=== PATIENT | female | born 1950 | race Caucasian/White ===

== ENCOUNTER → 2019-08-19 15:28 | Outpatient (BNVA) | payer MEDICARE, MEDICAID, SELFPAY | PROVIDERS: Family Provider Family Medicine; Visit Provider Family Medicine | DX: E03.9 Hypothyroidism, unspecified (principal); E83.42 Hypomagnesemia; E11.9 Type 2 diabetes mellitus without complications; I10 Essential (primary) hypertension; E78.5 Hyperlipidemia, unspecified | CPT/HCPCS: 80053; 80061; 83036; 83735; 84439; 84443; 84481 ==

== ENCOUNTER → 2020-03-16 14:38 | Outpatient (BNVA) | payer MEDICARE, MEDICAID, SELFPAY | PROVIDERS: Family Provider Family Medicine; PCP Family Medicine; Visit Provider Family Medicine | DX: E78.5 Hyperlipidemia, unspecified (principal); E03.9 Hypothyroidism, unspecified; K21.9 Gastro-esophageal reflux disease without esophagitis; E83.42 Hypomagnesemia; I10 Essential (primary) hypertension; E11.9 Type 2 diabetes mellitus without complications; F31.5 Bipolar disorder, current episode depressed, severe, with psychotic features | CPT/HCPCS: 80048; 83036; 83735; 84439; 84443; 84481 ==

== ENCOUNTER → 2020-08-01 14:40 | Outpatient (BNVA) | payer MEDICARE, MEDICAID, SELFPAY | PROVIDERS: Family Provider Family Medicine; PCP Family Medicine; Visit Provider Family Medicine | DX: E03.9 Hypothyroidism, unspecified (principal); E78.5 Hyperlipidemia, unspecified; E11.9 Type 2 diabetes mellitus without complications; K21.9 Gastro-esophageal reflux disease without esophagitis; H61.22 Impacted cerumen, left ear; F31.5 Bipolar disorder, current episode depressed, severe, with psychotic features | CPT/HCPCS: 80053; 80061; 83036; 84439; 84443; 84481 ==

== ENCOUNTER → 2021-02-14 08:48 | Outpatient (BNVA) | payer MEDICARE, MEDICAID, SELFPAY | PROVIDERS: Family Provider Family Medicine; PCP Family Medicine; Visit Provider Family Medicine | DX: E78.5 Hyperlipidemia, unspecified (principal); E03.9 Hypothyroidism, unspecified; E11.9 Type 2 diabetes mellitus without complications | CPT/HCPCS: 80053; 80061; 83036; 84439; 84443; 84481; 85025 ==

== ENCOUNTER → 2021-06-07 15:24 | Outpatient (BNVA) | payer MEDICARE, MEDICAID, SELFPAY | PROVIDERS: Family Provider Family Medicine; PCP Family Medicine; Visit Provider Family Medicine | DX: E11.9 Type 2 diabetes mellitus without complications (principal); E03.9 Hypothyroidism, unspecified; Z79.899 Other long term (current) drug therapy; E83.42 Hypomagnesemia; E78.5 Hyperlipidemia, unspecified; K21.9 Gastro-esophageal reflux disease without esophagitis; F41.1 Generalized anxiety disorder; F31.5 Bipolar disorder, current episode depressed, severe, with psychotic features; R53.83 Other fatigue; R41.3 Other amnesia | CPT/HCPCS: 82306; 82607; 83036; 84443 ==

== ENCOUNTER → 2021-09-27 14:42 | Outpatient (BNVA) | payer MEDICARE, MEDICAID, SELFPAY | PROVIDERS: Family Provider Family Medicine; PCP Family Medicine; Visit Provider Family Medicine | DX: E11.9 Type 2 diabetes mellitus without complications (principal); K21.9 Gastro-esophageal reflux disease without esophagitis; E03.9 Hypothyroidism, unspecified; E78.5 Hyperlipidemia, unspecified; F31.5 Bipolar disorder, current episode depressed, severe, with psychotic features; E55.9 Vitamin D deficiency, unspecified; Z59.9 Problem related to housing and economic circumstances, unspecified | CPT/HCPCS: 83036 ==

== ENCOUNTER 2021-11-22 19:34 | Emergency (ER) | payer MEDICARE, MEDICAID, SELFPAY ==
[2021-11-22 22:43] VITALS: BP 159/89; PULSE 80; RESP 16; TEMP 36.8; O2SAT 95; BMI 23.4
== END 2021-11-23 01:18 | disposition left against medical advice (07) ==
PROVIDERS: Emergency Provider Family Medicine; PCP Family Medicine
DX: Z53.21 Procedure and treatment not carried out due to patient leaving prior to being seen by health care provider (principal); L98.9 Disorder of the skin and subcutaneous tissue, unspecified

== ENCOUNTER → 2021-12-27 15:09 | Outpatient (BNVA) | payer MEDICARE, MEDICAID, SELFPAY | PROVIDERS: PCP Family Medicine; Visit Provider Family Medicine | DX: E11.9 Type 2 diabetes mellitus without complications (principal); E78.5 Hyperlipidemia, unspecified; R79.89 Other specified abnormal findings of blood chemistry; E03.9 Hypothyroidism, unspecified; K21.9 Gastro-esophageal reflux disease without esophagitis; L03.90 Cellulitis, unspecified; I10 Essential (primary) hypertension; E83.42 Hypomagnesemia; E55.9 Vitamin D deficiency, unspecified; J44.9 Chronic obstructive pulmonary disease, unspecified; R53.83 Other fatigue; L03.211 Cellulitis of face; F31.5 Bipolar disorder, current episode depressed, severe, with psychotic features | CPT/HCPCS: 80053; 80061; 82652; 83036; 83735; 84443; 85025 ==

== ENCOUNTER 2022-05-10 15:52 | Emergency (ER) | payer MEDICARE, MEDICAID, SELFPAY ==
[2022-05-10 16:14] VITALS: BP 155/70; PULSE 74; RESP 18; TEMP 36.4; O2SAT 99
[2022-05-10 18:30] LABS: Basophils # 0.1 10^3/uL (0.0-0.1); Basophils % 0.7 %; Eosinophils # 0.1 10^3/uL (0.0-0.8); Hematocrit 47.4 % (37.0-47.0); Hemoglobin 15.5 g/dL (11.5-15.3); Lymphocytes # 2.6 10^3/uL (0.8-4.8); Lymphocytes % 25.7 %; Mean Corpuscular HGB Conc 32.7 g/dL (30.0-36.0); Mean Corpuscular Hemoglobin 27.7 pg (28.0-34.0); Mean Corpuscular Volume 84.6 fl (81-99); Monocytes # 0.9 10^3/uL (0.2-0.9); Monocytes % 8.7 %; Neutrophils # 6.42 10^3/uL (1.8-7.7); Neutrophils % 63.6 %; Nucleated Red Blood Cells % 0 %; Platelet Count 353 10^3/cmm (130-400); Red Cell Distribution Width 14.4 % (12.1-15.1); White Blood Count 10.1 10^3/uL (4.0-10.0)
[2022-05-10 18:53] LABS: Alanine Aminotransferase 22 U/L (0-33); Albumin Level 4.6 g/dL (3.5-5.2); Alkaline Phosphatase 106 U/L (35-105); Anion Gap 19.7 (5-19); Aspartate Amino Transferase 31 U/L (0-32); Blood Urea Nitrogen 13 mg/dL (8-23); Calcium 10.1 mg/dL (8.5-10.5); Carbon Dioxide 22 mmol/L (22-29); Chloride 96 mmol/L (98-107); Globulin 2.5 g/dL (1.3-4.6); Glucose 216 mg/dL (65-115); Osmolality Calculated 285 mOsm/kg (285-295); Potassium 3.7 mmol/L (3.5-5.1); Sodium 134 mmol/L (136-145); Total Bilirubin 0.3 mg/dL (0.15-1.2); Total Protein 7.1 g/dL (6.6-8.7)
[2022-05-10 20:05] VITALS: BP 174/83; PULSE 69; RESP 18; O2SAT 97
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
[2022-05-10] MEDS: OLANZapine 10 mg VIAL 5 MG IM (21:12)
[2022-05-10 21:33] LABS: Salicylate 0.5 mg/dL (3-10); Thyroid Stimulating Hormone 71.83 uIU/mL (0.27-4.20)
[2022-05-10 21:54] LABS: Acetaminophen < 5.0 ug/mL (10-30); Alcohol Level < 10 mg/dL (0-10)
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
[2022-05-10] MEDS: ketamine 100 mg/mL Inj 5 mL IM (22:24)
--- NOTE | 2022-05-10 22:40 | ECG_ITS ---
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 Measurements Intervals [place] Rate: 80 P: 77 IN: 224 QRS: 68 QRSD: 90 T: 67 QT: 411 QTc: 475 Interpretive Statements SINUS RHYTHM WITH FIRST DEGREE AV BLOCK No previous ECG available for comparison Electronically Signed On 05-11-2022 21:39:58 HEAD GROWER by Chad Vogel M.D. [email or web address]
[2022-05-10 23:07] LABS: Amphetamines Screen Urine Negative (Negative); Barbiturates Screen Urine Negative (Negative); Benzodiazepines Screen Urine Negative (Negative); Cocaine Screen Urine Negative (Negative); Opiate Screen Urine Negative (Negative); PCP Screen Urine Negative (Negative); THC Screen Urine Negative (Negative)
[2022-05-10 23:18] LABS: SARS Covid-2 Antigen negative (Negative)
[2022-05-10 23:44] LABS: Add Urine Microscopic? NO; Charge for UA Resulting for Rev
[2022-05-10 23:48] LABS: Bilirubin Urine Neg (Negative); Blood Urine Neg (Negative); Glucose Urine UA 2+ (Normal); Ketones Urine 1+ (Negative); Leukocyte Esterase Urine Negative (Negative); Nitrate Urine Negative (Negative); Protein Urine Neg (Negative); Urine Appearance Clear (CLEAR); Urine Color Yellow (Yellow); Urobilinogen Urine Norm (Negative); pH Urine 5 (5-7)
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
[2022-05-11 00:30] VITALS: BP 121/53; PULSE 49; O2SAT 97
--- NOTE | 2022-05-11 07:01 | PC.NURSE ---
WHILE AT BEDSIDE PT IS RESTING QUIETLY ON RIGHT SIDE IN BED. PT HAS GOOD CHEST RISE AND FALL.
--- NOTE | 2022-05-11 07:22 | PC.PHAR ---
pt unable to verify meds- verified using external med history and discharge paperwork from [facility] in pts file
[2022-05-11 07:32] LABS: Free T4 Free Thyroxine 0.23 ng/dL (0.82-1.77)
--- NOTE | 2022-05-11 09:41 | PC.NURSE ---
This nurse assumed care @ 0900 05/11/22.
--- NOTE | 2022-05-11 13:17 | DCPLANNER ---
Addendum entered by Marlene Loagn 05/11/22 13:20: Rickey called and requested another affidavit on patient. research and evaluation manager had Dr. Oneill fill out an affidavit on patient, this was faxed to [facility] at 1230. Rickey called director of casework back at 13:21 - stated that [facility] did accept patient. The ER is aware that patient was accepted. Original Note: late entry - unit tender was asked to look for drea psych placement for patient. The unit tender called and faxed patients information to the following facilities. Get - 0320 spoke with jose - faxed patients information at 0320 - Get called [facility] stating that they would not take AMS [facility] - 0325 - spoke with Ross - faxed patients information at 0320
[2022-05-11 13:42] VITALS: BP 115/55; PULSE 82; RESP 18; TEMP 36.6; O2SAT 100
[2022-05-11] MEDS: OLANZapine 10 mg VIAL 5 MG IM (14:30)
[2022-05-11] MEDS: LORazepam 2 mg/mL INJ 1 mL 1 MG IM (14:30)
--- NOTE | 2022-05-11 14:31 | PC.NURSE ---
Patient is refusing to leave with EMS. Dr. Oneill ordered Lorazepam 1mg and Olanzapine 5 mg. Before this nurse spoke with the patient. This nurse spoke with Dr Oneill and asked him what to do if the patient refuses. Dr Oneill said to call a code 10 and give the medication to the patient anyway. This nurse spoke with the patient at length and asked if the patient would take some medication, patient said no to the medication. While this nurse was talking to the patient, Marlene asked Dr Oneill wanted to call a code 10 if the patient refused, he said yes . After the nurse was done talking with the patient, he had Anamaria transmitter engineer in charge ask him if he wanted to call a code 10 if she refused and give her the medication anyway, Dr oneill said yes . Code 10 then was called and the patient received medication as ordered by Dr Oneill.
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
--- NOTE | 2022-05-11 15:58 | PC.NURSE ---
updated report called to Bridget at [facility]. Pt will go to room 403 bed 1
== END 2022-05-11 16:16 ==
PROVIDERS: Emergency Medicine; Nurse Practitioner Family; Emergency Provider Emergency Medicine; PCP Family Medicine
DX: F31.5 Bipolar disorder, current episode depressed, severe, with psychotic features (principal); E03.9 Hypothyroidism, unspecified; Z79.84 Long term (current) use of oral hypoglycemic drugs; Z20.822 Contact with and (suspected) exposure to COVID-19; Z87.891 Personal history of nicotine dependence; E78.5 Hyperlipidemia, unspecified; E11.9 Type 2 diabetes mellitus without complications
CPT/HCPCS: 36415; 80053; 80306; 80307; 81003; 84439; 84443; 85025; 87426; 93005; 96372; 99285; J2060; J3490

== ENCOUNTER → 2022-07-12 10:49 | Outpatient (BNVA) | payer MEDICARE, MEDICAID, SELFPAY | PROVIDERS: PCP Family Medicine; Visit Provider Registered Nurse | DX: Z79.899 Other long term (current) drug therapy (principal); E11.9 Type 2 diabetes mellitus without complications | CPT/HCPCS: 80053; 80061; 83036; 83735; 84443; 85025 ==

== ENCOUNTER → 2022-08-02 10:11 | Outpatient (BNVA) | payer MEDICARE, MEDICAID, SELFPAY | PROVIDERS: PCP Family Medicine; Visit Provider Family Medicine | DX: E78.5 Hyperlipidemia, unspecified (principal); E11.9 Type 2 diabetes mellitus without complications; Z51.81 Encounter for therapeutic drug level monitoring | CPT/HCPCS: 80053; 80061; 83036; 85025 ==

== ENCOUNTER → 2022-12-03 14:42 | Outpatient (BNVA) | payer MEDICARE, OTHER, SELFPAY | PROVIDERS: PCP Family Medicine; Visit Provider Family Medicine | DX: K21.9 Gastro-esophageal reflux disease without esophagitis (principal); E03.9 Hypothyroidism, unspecified; E11.9 Type 2 diabetes mellitus without complications; E78.5 Hyperlipidemia, unspecified; R79.89 Other specified abnormal findings of blood chemistry; F50.01 Anorexia nervosa, restricting type; R63.4 Abnormal weight loss; F03.90 Unspecified dementia, unspecified severity, without behavioral disturbance, psychotic disturbance, mood disturbance, and anxiety | CPT/HCPCS: 85025 ==

== ENCOUNTER → 2022-12-13 13:56 | Outpatient (BNVA) | payer MEDICARE, MEDICAID, SELFPAY | PROVIDERS: PCP Family Medicine; Referring Provider Family Medicine; Visit Provider Family Medicine | DX: F50.01 Anorexia nervosa, restricting type (principal); E11.9 Type 2 diabetes mellitus without complications; E03.9 Hypothyroidism, unspecified | CPT/HCPCS: 80053; 80061; 83036; 84443; 85025 ==

== ENCOUNTER → 2023-06-27 09:31 | Outpatient (BNVA) | payer MEDICARE, MEDICAID, SELFPAY | PROVIDERS: PCP Family Medicine; Visit Provider Family Medicine | DX: E03.9 Hypothyroidism, unspecified (principal); E11.9 Type 2 diabetes mellitus without complications; J44.9 Chronic obstructive pulmonary disease, unspecified | CPT/HCPCS: 80053; 83036; 84439; 84443; 84481; 85025 ==

== ENCOUNTER → 2023-09-30 13:19 | Outpatient (BNVA) | payer MEDICARE, MEDICAID, SELFPAY | PROVIDERS: PCP Family Medicine; Visit Provider Family Medicine | DX: E03.9 Hypothyroidism, unspecified (principal) | CPT/HCPCS: 84439; 84443; 84481 ==

== ENCOUNTER → 2024-03-19 10:32 | Outpatient (BNVA) | payer MEDICARE, MEDICAID, SELFPAY | PROVIDERS: PCP Family Medicine; Visit Provider Family Medicine | DX: E78.5 Hyperlipidemia, unspecified (principal); E11.9 Type 2 diabetes mellitus without complications; E03.9 Hypothyroidism, unspecified | CPT/HCPCS: 80053; 83036; 84439; 84443; 84481; 85025 ==

== ENCOUNTER → 2024-06-25 10:31 | Outpatient (BNVA) | payer MEDICARE, MEDICAID, SELFPAY | PROVIDERS: PCP Family Medicine; Visit Provider Family Medicine | DX: E11.9 Type 2 diabetes mellitus without complications (principal); E03.9 Hypothyroidism, unspecified | CPT/HCPCS: 83036; 84439; 84443; 84481 ==

== ENCOUNTER → 2024-09-17 11:14 | Outpatient (BNVA) | payer MEDICARE, MEDICAID, SELFPAY | PROVIDERS: PCP Family Medicine; Visit Provider Family Medicine | DX: E03.9 Hypothyroidism, unspecified (principal); E78.5 Hyperlipidemia, unspecified | CPT/HCPCS: 80053; 80061; 84439; 84443; 84481; 85025 ==